=== PATIENT | male | born 1965 | race Caucasian/White ===

== ENCOUNTER → 2018-06-25 | Outpatient (CLI) | payer OTHER | LOC: M RAD 08:32 | DX: M84.364A Stress fracture, left fibula, initial encounter for fracture (principal); X58.XXXA Exposure to other specified factors, initial encounter; Y92.9 Unspecified place or not applicable | CPT/HCPCS: 78315 ==

== ENCOUNTER → 2019-02-26 | Outpatient (CLI) | payer BC, OTHER ==
--- NOTE | 2019-02-26 17:01 | REP ---
MRI LEFT SHOULDER: TECHNIQUE: Axial T2 fat sat, gradient echo, sagittal oblique T2 fat sat, coronal oblique T1, T2 fat sat. The supraspinatus tendon demonstrates scattered ill-defined high signal on T2 weighted images compatible with tendinopathy/tendonitis. There is a focal area of increased signal in the bursal surface of the anterior aspect of the tendon suggesting a partial bursal surface tear. Other rotator cuff tendons appear intact. There are mild hypertrophic degenerative changes of the acromiclavicular joint with downward sloping of the acromion which is type 2. Biceps tendon is within the bicipital groove with no tenosynovitis. There is no Hill Sach's deformity. The deltoid muscle demonstrates no abnormal signal. There is fraying of the biceps labral complex. The superior labrum demonstrates globular increased signal on T2 weighted images at its base suggesting a SLAP tear. A few small subchondral cysts are seen in the superolateral humeral head. There is a very small amount of fluid in the subacromial subdeltoid bursae which may indicate an element of bursitis. IMPRESSION: Supraspinatus tendinopathy/tendinitis with an apparent partial bursal surface tear at the anterior leading edge. Mild hypertrophic degenerative changes of the acromioclavicular joint with downward sloping of the acromion which is type 2. Fraying of the biceps labral complex. There are also finding suggesting a SLAP tear. This could be confirmed with an MR arthrogram. Mild subchondral cystic changes superolateral humeral head. Small amount of fluid of the subacromial subdeltoid bursae suggesting an element of bursitis. Electronically Signed by Paul Baker MD 03/01/2019 11:26 A
== END ==
LOC: M RAD 10:05
PROVIDERS: ATTEND Orthopaedic Surgery Sports Medicine
DX: M19.112 Post-traumatic osteoarthritis, left shoulder (principal)

== ENCOUNTER → 2020-01-04 | Outpatient (CLI) | payer BC, OTHER | LOC: M LABSMTC 09:48 | PROVIDERS: ATTEND Physical Medicine & Rehabilitation | DX: Z03.818 Encounter for observation for suspected exposure to other biological agents ruled out (principal) ==